=== PATIENT | male | born 1965 | race Caucasian/White ===

== ENCOUNTER 2017-03-21 08:41 | Outpatient (CLI) | payer MEDICARE, MEDICAID ==
--- NOTE | 2017-03-21 10:18 | Diagnostic Imaging Report ---
Indication: Chest pain Technique: Continuous helical transaxial imaging of the chest was obtained from the thoracic inlet to the upper abdomen. No intravenous contrast was administered. Coronal 2-D reformats were also obtained. Total Dose length Product (DLP): 621.[address] Dose Index Volume (CTDIvol): 14.96 mGy Comparison: none Findings: Patchy, scattered hyperlucency noted within the upper lung galaviz, very mild in degree likely due to emphysema. Please correlate clinically. There is no consolidation. There is a left chest port present which appears to be in good position with the tip in the SVC. Mild coronary calcifications are present. Some constipation of the aorta noted. The heart is unremarkable. There is are no pleural or pericardial effusions are present. No adenopathy is appreciated although the study was done without intravenous contrast. This limits the study. Maxilla appear clear. IMPRESSION: No acute disease. Mild emphysema/COPD with scattered hyperlucencies in the upper lobes. Please correlate clinically. Chest port in good position Atherosclerotic vascular disease The CT scanner at [facility] is accredited by the [employer] and the scans are performed using dose optimization techniques as appropriate to a performed exam including Automatic Exposure control.
== END 2017-03-21 10:41 | disposition home or self-care (01) ==
LOC: CAT 08:41
DX: R07.9 Chest pain, unspecified (principal); Z87.891 Personal history of nicotine dependence; J44.9 Chronic obstructive pulmonary disease, unspecified; I70.90 Unspecified atherosclerosis
CPT/HCPCS: 71250